=== PATIENT | male | born 1945 | race Caucasian/White ===

== ENCOUNTER 2018-01-27 05:51 | Day surgery (SDC) | payer MEDICARE ==
--- NOTE | 2018-01-25 21:28 | HP ---
CC: Dr. Geovani Cisneros; Dr. Mirtha Carvalho * ADMITTING HISTORY AND PHYSICAL: DATE OF ADMISSION: 01/27/18 ADMITTING DIAGNOSES: 1. Gross hematuria. 2. Bladder tumors. SURGICAL PROCEDURE: Transurethral resection of multiple bladder tumors, possible right stent insertion. SURGEON: Dr. Davis. HISTORY OF PRESENT ILLNESS: Red Rodriguez is a 72-year-old former smoker, who was evaluated for gross hematuria. Cystoscopy done in my office revealed a markedly large prostate, there are multiple bladder tumors noted in the mid trigone and in the floor of the bladder, some of which appear high-grade and possibly invasive. A CT urogram was obtained, which did not reveal any evidence of hydronephrosis or any adenopathy and he is now being brought in for transurethral resection of the bladder tumors and possible right stent insertion. PAST MEDICAL HISTORY: Significant for: 1. Hypertension. 2. Gastric reflux. 3. History of coronary artery disease. PAST SURGICAL HISTORY: Unremarkable. MEDICATIONS ON ADMISSION: 1. Doxazosin 8 mg a day. 2. Metoprolol 50 mg b.i.d. 3. Proscar 5 mg a day. 4. Omeprazole 20 mg a day. 5. Aspirin 81 mg a day. ALLERGIES: No known drug allergies. SMOKING HISTORY: He is a former smoker, who quit 4 years ago and has a 30-pack- year smoking history prior to that. REVIEW OF SYSTEMS: He denies any chest pain or shortness of breath. There is no history of diabetes mellitus or any other major systemic illness. PHYSICAL EXAMINATION GENERAL: Reveals a pleasant elderly gentleman. VITAL SIGNS: Blood pressure is 130/84; pulse 71 per minute, regular; oxygen saturation 98% on room air. LUNGS: Clear bilaterally. CARDIOVASCULAR: Regular rate and rhythm. S1, S2. ABDOMEN: Soft without masses. IMPRESSION: A 72-year-old former smoker with gross hematuria and multiple bladder tumors. PLAN: Planned procedure is transurethral resection of bladder tumors, possible right stent insertion. [id number]/[facility] #: [id number] [facility]
[~2018-01-27 05:51] MED LIST: Buffered Lidocaine 0.9% SYRIN* 5 ML/SYR SYRINGE INTRADERM ONE
[2018-01-27] MEDS ORDERED: Famotidine IV* 10 MG/ML 2 ML (20 mg) IV ONE (06:00)
[2018-01-27] MEDS ORDERED: Dexamethasone IV* 4 MG/ML 1 ML (4 MG) IV SLOW PU ONE (06:00)
[2018-01-27] MEDS ORDERED: cefTRIAXone(*) 2 GM ADDV.VIAL IVPB ONE (06:22)
[2018-01-27] MEDS ORDERED: Dexamethasone IV* 4 MG/ML 1 ML (4 MG) ONE (06:22)
[2018-01-27] MEDS ORDERED: Buffered Lidocaine 0.9% SYRIN* 5 ML/SYR SYRINGE ONE (06:22)
[2018-01-27] MEDS ORDERED: oxyCODONE/Acetamin 5/325 MG* TAB PO PRN (07:25)
[2018-01-27] MEDS ORDERED: Ondansetron INJ* 2 MG/ML VIAL IV PRN (07:25)
[2018-01-27] MEDS ORDERED: PROCHLORPERAZINE INJ 5 MG/ML 2 ML VIAL IV PRN (07:25)
[2018-01-27] MEDS ORDERED: HYDROcodone/ACETAMIN 5-325 MG* 1 TAB PO PRN (07:25)
[2018-01-27] MEDS ORDERED: Naloxone* 0.4 MG/ML 1 ML VIAL IV PRN (07:25)
[2018-01-27] MEDS ORDERED: fentaNYL* 50 MCG/ML 2 ML VIAL (100 MCG VIAL) ONE ×3 (07:30→09:23)
[2018-01-27] MEDS ORDERED: Lidocaine 2% PF * 5 ML VIAL ONE (07:31)
[2018-01-27] MEDS ORDERED: Propofol* 10 MG/ML 20 ML BTL IV PUSH ONE (07:31)
[2018-01-27] MEDS ORDERED: DiMENhydriNATE IV* 50 MG/ML VIAL ONE (07:57)
[2018-01-27] MEDS ORDERED: Iohexol 180 (CONTRAST) 10 ML SDV IV ONE (08:19)
[2018-01-27] MEDS ORDERED: Furosemide IV* 10 MG/ML 2 ML VIAL (20 MG) ONE (08:25)
[2018-01-27] MEDS: fentaNYL* 50 MCG/ML 2 ML VIAL (100 MCG VIAL) IV PRN ×2 (09:23→09:34)
[2018-01-27] MEDS ORDERED: Lidocaine 2% JELLY* 6 ML JELLY TOPICAL ONE (09:46)
[2018-01-27] MEDS ORDERED: mitoMYcin PWD* 40 MG in Sterile Water for Inj* 40 ML IRRIGATION ONE (10:00)
[2018-01-27] MEDS ORDERED: HYDROcodone/ACETAMIN 5-325 MG* 1 TAB ONE (10:03)
[2018-01-27 12:45] VITALS: BP 131/82
--- NOTE | 2018-01-27 13:00 | RAD ---
INDICATION: Transurethral resection of bladder tumor, pyelogram COMPARISONS: CT dated January 16, 2018 TECHNIQUE: Fluoroscopy was provided for a retrograde pyelogram and stent placement. Total fluoroscopy time is: 10.8 seconds FINDINGS: Spot images demonstrate contrast within the renal collecting system. A ureteral stent is noted. IMPRESSION: FLUOROSCOPY WAS PROVIDED FOR A RETROGRADE PYELOGRAM AND STENT PLACEMENT CPT II Codes: G9500
--- NOTE | 2018-01-28 01:26 | OP ---
CC: Geovani Csineros MD * DATE OF OPERATION: 01/27/18 - [facility] DATE OF : 47 SURGEON: Rio Davis MD ANESTHESIOLOGIST: Dr. Ott. ANESTHESIA: General. PRE-OP DIAGNOSIS: 1. Gross hematuria. 2. Multiple bladder tumors. 3. Prostate enlargement. POST-OP DIAGNOSIS: 1. Gross hematuria. 2. Multiple bladder tumors. 3. Prostate enlargement. OPERATIVE PROCEDURE: 1. Cystoscopy. 2. Transurethral resection and fulguration of multiple bladder tumors (5 to 6 cm). 3. Right retrograde pyelogram and right stent insertion. COMPLICATIONS: None. BLOOD LOSS: Less than 25 cc. INDICATIONS: Red Rodriguez is a 72-year-old gentleman who has had intermittent gross hematuria secondary to bladder tumors. Some of these tumors are close to the right side of the trigone. OPERATIVE FINDINGS: 1. Markedly enlarged vascular prostate. 2. Multiple superficial papillary bladder tumors, mid trigone closer to right side. No evidence of any muscle invasive appearing tumor. POSTOPERATIVE CONDITION: Stable. STENT USED: 6-Nepalese stent, right ureter. DESCRIPTION OF PROCEDURE: After induction of general anesthesia, the patient was placed in dorsal lithotomy position. Sequential compression devices were in place and functioning. Initial cystoscopy revealed a normal appearing urethra, markedly enlarged vascular prostate especially the median lobe component. The bladder was examined. The right and left ureteral orifices were normal in position and configuration. There were multiple papillary tumors in the mid trigone closer to the right side. All of these had an appearance consistent with superficial transitional cell carcinoma. Using the biopsy forceps, indirect sales representative biopsies were obtained and sent for histopathology. The resectoscope was introduced and all of the visible tumors were resected and/ or fulgurated. Some of the tumors were close to the opening of the right ureter and a right retrograde pyelogram was performed, which was normal. A 6- Nepalese stent was introduced and positioned under fluoroscopy in order to protect the right ureter and especially the intramural portion of the ureter. At the end of the procedure, there was no remaining visible tumor and hemostasis appeared satisfactory. A 22-Nepalese Wilson catheter was introduced without difficulty and connected to a drainage bag. The patient tolerated the procedure satisfactorily and was transferred back to recovery area in stable condition. [id number]/[facility] #: [id number] [facility]
--- NOTE | 2018-01-28 14:58 | OP ---
DICTATION CANCELLED OPERATIVE REPORT: DATE OF OPERATION: 01/27/18. DATE OF : 47. SURGEON: Rio Davis MD. PRE-OP DIAGNOSES: 1. Gross hematuria. 2. Bladder tumor. POST-OP DIAGNOSES: 1. Gross hematuria. 2. Bladder tumor. OPERATIVE PROCEDURE: Transurethral resection and fulguration of multiple bladder tumors, right retrograde pyelogram, and right stent insertion. DICTATION CANCELLED [id number]/[facility] #: [id number] [facility]
== END 2018-01-27 12:45 | disposition home or self-care (01) ==
LOC: OR 05:51
PROVIDERS: ATTEND Urology
DX: C67.8 Malignant neoplasm of overlapping sites of bladder (principal); R31.0 Gross hematuria; Z87.891 Personal history of nicotine dependence; I10 Essential (primary) hypertension; K21.9 Gastro-esophageal reflux disease without esophagitis; I25.10 Atherosclerotic heart disease of native coronary artery without angina pectoris; N40.0 Benign prostatic hyperplasia without lower urinary tract symptoms; F41.9 Anxiety disorder, unspecified
CPT/HCPCS: 74420; 88305; C1876; J0696; J1100; J1240; J1940; J2704; J3010; J9280

== ENCOUNTER 2018-11-29 05:41 | Day surgery (SDC) | payer MEDICARE ==
--- NOTE | 2018-11-21 18:28 | HP ---
CC: Dr. Geovani Cisneros; Dr. Mirtha Carvalho * ADMITTING HISTORY AND PHYSICAL: DATE OF ADMISSION: 11/29/18 ADMITTING DIAGNOSIS: Bladder cancer. PLANNED PROCEDURE: Cystoscopy and excision biopsy of multiple bladder tumors. SURGEON: Dr. Davis. HISTORY OF PRESENT ILLNESS: Red Rodriguez is a 73-year-old former smoker with a history of high-grade superficial bladder cancer. He had undergone transurethral resection of bladder lesions in January 2018 and subsequently he had received intravesical BCG treatments. 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 PAST MEDICAL HISTORY: Significant for: 1. History of coronary artery disease. 2. Hypertension. 3. Gastric reflux. 4. High cholesterol. MEDICATIONS ON ADMISSION: 1. Metoprolol 50 mg twice a day. 2. Proscar 5 mg a day. 3. Doxazosin 8 mg daily. 4. Aspirin 81 mg daily. 5. Omeprazole 20 mg daily. 6. Simvastatin just recently started last week. ALLERGIES: No known drug allergies. SOCIAL HISTORY: Smoking history: He has about a 30-pack year smoking history, who quit about 4 to 5 years ago. REVIEW OF SYSTEMS: He denies any chest pain or shortness of breath. There is no history of diabetes mellitus or any other major systemic illness. PHYSICAL EXAMINATION GENERAL: Reveals a pleasant, healthy-appearing elderly gentleman. VITAL SIGNS: Blood pressure is 152/90, pulse 62 per minute and regular, oxygen saturation 96% on room air, respirations 18 per minute. LUNGS: Clear bilaterally. CARDIOVASCULAR: Regular rate and rhythm. S1, S2. ABDOMEN: Soft without masses. IMPRESSION: A 73-year-old former smoker with recurrent bladder tumors. PLAN/RECOMMENDATIONS: Planned procedure is cystoscopy, excision biopsy of bladder tumors. [id number]/[facility] #: [id number] [facility]
[~2018-11-29 05:41] MED LIST changes: -Buffered Lidocaine 0.9% SYRIN* 5 ML/SYR SYRINGE INTRADERM ONE; +Buffered Lidocaine 1% SYRIN* 1 ML/SYRINGE INTRADERM ONE; +Ondansetron TAB* 4 MG PO ONE
[2018-11-29] MEDS ORDERED: DiMENhydriNATE IV* 50 MG/ML VIAL IV PUSH PRN (05:52)
[2018-11-29] MEDS ORDERED: PROCHLORPERAZINE INJ 5 MG/ML 2 ML VIAL IV PRN (05:52)
[2018-11-29] MEDS ORDERED: Morphine 4 MG/ML VIAL (1 ml) 4 MG/ML VIAL IV PRN (05:52)
[2018-11-29] MEDS ORDERED: fentaNYL* 50 MCG/ML 2 ML VIAL (100 MCG VIAL) IV PRN (05:52)
[2018-11-29] MEDS ORDERED: oxyCODONE/Acetamin 5/325 MG* TAB PO PRN (05:52)
[2018-11-29] MEDS ORDERED: Naloxone* 0.4 MG/ML 1 ML VIAL IV PRN (05:52)
[2018-11-29] MEDS ORDERED: Dexamethasone TAB* 4 MG PO ONE (06:00)
[2018-11-29] MEDS ORDERED: Famotidine IV* 10 MG/ML 2 ML (20 mg) IV ONE (06:00)
[2018-11-29] MEDS ORDERED: Lactated Ringers 1000 ML Bag* 1,000 ML IV SCH (06:00)
[2018-11-29] MEDS ORDERED: Famotidine IV* 10 MG/ML 2 ML (20 mg) ONE (06:03)
[2018-11-29] MEDS ORDERED: Ondansetron ODT TAB* 4 MG ONE (06:03)
[2018-11-29] MEDS ORDERED: Dexamethasone TAB* 4 MG ONE (06:03)
[2018-11-29] MEDS ORDERED: cefTRIAXone(*) 2 GM ADDV.VIAL IVPB ONE (06:03)
[2018-11-29] MEDS ORDERED: Iohexol 180 (CONTRAST) 10 ML SDV IV ONE (07:07)
[2018-11-29] MEDS ORDERED: fentaNYL* 50 MCG/ML 2 ML VIAL (100 MCG VIAL) ONE (07:21)
[2018-11-29] MEDS ORDERED: Midazolam* 1 MG/ML 2 ML VIAL (2 MG) ONE (07:21)
[2018-11-29] MEDS ORDERED: KETAMINE HCL* 50 MG/ML 10 ML VIAL ONE (07:21)
[2018-11-29] MEDS ORDERED: Furosemide IV* 10 MG/ML 2 ML VIAL (20 MG) ONE (07:50)
[2018-11-29] MEDS ORDERED: Propofol* 10 MG/ML 20 ML BTL ONE (07:51)
[2018-11-29] MEDS ORDERED: Lidocaine 2% PF * 5 ML VIAL ONE (07:51)
[2018-11-29] MEDS ORDERED: Phenylephrine 10 MG/ML VIAL* 1 ML VIAL ONE (07:51)
[2018-11-29] MEDS ORDERED: oxyCODONE/Acetamin 5/325 MG* TAB ONE (09:07)
[2018-11-29 09:52] VITALS: BP 152/73
--- NOTE | 2018-11-29 11:28 | OP ---
CC: Dr. Humberto Cisneros; Dr. Mirtha Carvalho; Dr. Rio Davis* OPERATIVE REPORT: DATE OF OPERATION: 11/29/18 - [facility] DATE OF : 47 SURGEON: Dr. Davis. ANESTHESIOLOGIST: Dr. Steward. ANESTHESIA: General. PRE-OP DIAGNOSES: Probable recurrent bladder tumor and carcinoma in situ of urinary bladder. POST-OP DIAGNOSES: Probable recurrent bladder tumor and carcinoma in situ of urinary bladder. OPERATIVE PROCEDURE: 1. Cystoscopy. 2. Multiple excision biopsies. 3. Fulguration of bladder lesion (aggregate 4 to 5 cm). COMPLICATIONS: None. OPERATIVE FINDINGS: 1. Markedly enlarged prostate, especially median lobe. 2. Multiple areas of posterior bladder wall probably representing recurrent transitional cell carcinoma and carcinoma in situ. POSTOPERATIVE CONDITION: Stable. INDICATIONS: Red Rodriguez is a 73-year-old gentleman who was recently seen in followup and noted to have the above-mentioned findings suspicious for recurrent transitional cell carcinoma. DESCRIPTION OF PROCEDURE: After induction of general anesthesia, the patient was placed in the dorsal lithotomy position. Sequential compression devices were in place and functioning. Initial evaluation revealed mild nonobstructing strictures in the bulbar urethra and a significantly enlarged prostate. The bladder was examined. The right and left ureteral orifices were normal in position and configuration. There were multiple areas in the posterior bladder wall as described above. Using the biopsy forceps, excision biopsies were obtained and sent for histopathology. Next, using the Bugbee electrocautery, the base and edges were carefully fulgurated. At the end of the procedure, hemostasis appeared satisfactory and there was no evidence of bladder perforation. Initially, I placed a 20-Cymraes Wilson catheter, but it did not seem to be draining well, so a cystoscopy was performed. I think the initial catheter balloon was getting hung up in the area of the median lobe and using a cystoscope, the guidewire was introduced into the bladder and a 22-Cymraes Councill tip catheter was easily advanced over it. The patient tolerated the procedure satisfactorily and was transferred back to the recovery area in stable condition. [id number]/[facility] #: [id number] [facility]
== END 2018-11-29 09:53 | disposition home or self-care (01) ==
LOC: OR 05:41
PROVIDERS: ATTEND Urology
DX: D09.0 Carcinoma in situ of bladder (principal); Z85.51 Personal history of malignant neoplasm of bladder; Z87.891 Personal history of nicotine dependence; I25.10 Atherosclerotic heart disease of native coronary artery without angina pectoris; I25.2 Old myocardial infarction; I10 Essential (primary) hypertension; K21.9 Gastro-esophageal reflux disease without esophagitis; E78.00 Pure hypercholesterolemia, unspecified
CPT/HCPCS: 88305; A9270-GY; J0696; J1940; J2250; J2704; J3010; J8540

== ENCOUNTER → 2019-07-23 07:14 | Day surgery (SDC) | payer MEDICARE ==
--- NOTE | 2019-07-19 18:25 | HP ---
CC: Dr. Cisneros; Dr. Carvalho * ADMITTING HISTORY AND PHYSICAL: DATE OF ADMISSION: 07/23/19 ADMITTING DIAGNOSIS: Recurrent bladder cancer. PLANNED PROCEDURE: Cystoscopy, transurethral resection of bladder tumor. SURGEON: Dr. Davis. HISTORY OF PRESENT ILLNESS: Red Rodriguez is a 73-year-old former smoker with a history of superficial high-grade bladder cancer. He was recently evaluated and noted to have a recurrent bladder tumor in the anterior bladder wall on the right side, and is now being brought in for transurethral resection of the same. PAST MEDICAL HISTORY: Significant for: 1. High cholesterol. 2. Superficial bladder cancer. 3. Hypertension. 4. History of coronary artery disease. PAST SURGICAL HISTORY: Significant for transurethral resection of bladder tumor in 2017 and November of 2018. MEDICATIONS ON ADMISSION: 1. Cardura 8 mg daily. 2. Proscar 5 mg daily. 3. Rosuvastatin 10 mg daily. 4. Omeprazole 20 mg daily. 5. Metoprolol 50 mg daily. ALLERGIES: No known drug allergies. FAMILY HISTORY: Negative for bladder cancer. SOCIAL HISTORY: Smoking history: He is a former smoker, who quit 5 years ago and has a 30-pack year smoking history. MENTAL HISTORY: He is alert and oriented x3. PHYSICAL EXAMINATION GENERAL: Reveals a pleasant, healthy-appearing elderly gentleman. VITAL SIGNS: Blood pressure is 142/84, pulse 60 per minute and regular, oxygen saturation 94% on room air, temperature 96.2. LUNGS: Clear bilaterally. CARDIOVASCULAR: Regular rate and rhythm. S1, S2. ABDOMEN: Soft without masses. IMPRESSION: A 73-year-old former smoker with what appears to be recurrent bladder tumor in the anterior bladder wall on the right side. PLAN/RECOMMENDATIONS: Planned procedure is transurethral resection of bladder tumor. [id number]/[facility] #: [id number] [facility]
[~2019-07-23 07:14] MED LIST changes: +Acetaminophen TAB* 325 MG ONE; +Acetaminophen TAB* 325 MG PO ONE; +Dexamethasone IV* 4 MG/ML 1 ML (4 MG) ONE; +DiMENhydriNATE IV* 50 MG/ML VIAL IV PUSH PRN; +Famotidine IV* 10 MG/ML 2 ML (20 mg) IV ONE; +Famotidine IV* 10 MG/ML 2 ML (20 mg) ONE; +Furosemide IV* 10 MG/ML 2 ML VIAL (20 MG) ONE; +HYDROcodone/ACETAMIN 5-325 MG* 1 TAB ONE; +HYDROcodone/ACETAMIN 5-325 MG* 1 TAB PO PRN; +Lactated Ringers 1000 ML Bag* 1,000 ML IV SCH; +Lidocaine 2% PF * 5 ML VIAL ONE; +Midazolam* 1 MG/ML 2 ML VIAL (2 MG) ONE; +Naloxone* 0.4 MG/ML 1 ML VIAL IV PRN; +Ondansetron INJ* 2 MG/ML VIAL IV PRN; +Ondansetron INJ* 2 MG/ML VIAL ONE; -Ondansetron TAB* 4 MG PO ONE; +Propofol* 10 MG/ML 20 ML BTL ONE; +cefTRIAXone(*) 2 GM ADDV.VIAL IVPB ONE; +diPHENhydraMINE IV* 50 MG/ML 1 ml VIAL (BENADRYL) IV PRN; +fentaNYL* 50 MCG/ML 2 ML VIAL (100 MCG VIAL) ONE; +mitoMYcin PREMIX* 40 MG KIT* 40 MG/40 ML SYRINGE IRRIGATION ONE; +oxyCODONE/Acetamin 5/325 MG* TAB ONE
--- NOTE | 2019-07-23 11:47 | OP ---
CC: Dr. Humberto Cisneros * DATE OF OPERATION: 07/23/19 - [facility] DATE OF : 47 SURGEON: Rio Davis MD ANESTHESIOLOGIST: Dr. Olivarez. ANESTHESIA: General. PRE-OP DIAGNOSIS: Recurrent bladder cancer. POST-OP DIAGNOSIS: Recurrent bladder cancer. OPERATIVE PROCEDURE: Cystoscopy, transurethral resection and fulguration of bladder tumor (3 to 4 cm). COMPLICATIONS: None. BLOOD LOSS: Less than 25 cc. INDICATIONS: Red Rodriguez is a 73-year-old gentleman with a history of recurrent superficial bladder cancer. He is a former smoker. He is now being brought in for transurethral resection of a recurrent bladder tumor. OPERATIVE FINDINGS: Superficial-appearing bladder tumor anterior bladder wall right side. 1. Moderately enlarged prostate. 2. Recurrent bladder tumor anterior wall right side. POSTOPERATIVE CONDITION: Stable. CATHETER: 22-Cuban Wilson. DESCRIPTION OF PROCEDURE: After induction of general anesthesia, the patient was placed in dorsal lithotomy position, sequential compression devices were in place and functioning. Initial cystoscopy revealed a normal-appearing urethra, moderately enlarged prostate. The bladder was examined. The right and left ureteral orifices appeared normal. There was scarring noted at the site of previous tumor resection. In the anterior bladder wall on the right side, there was a 3 to 4 cm area of what appears to be a superficial, possibly high- grade tumor. Using a biopsy forceps, branch service representative biopsies were obtained and sent for histopathology. Next, using the resectoscope, all of the visible tumor was carefully resected and hemostasis was secured using the coagulating current. At the end of the procedure, there was no remaining visible tumor and there was no evidence of bladder perforation. A 22-Cuban Wilson was introduced and connected to a drainage bag. The patient tolerated the procedure satisfactorily and was transferred back to the recovery area in stable condition. [id number]/[facility] #: [id number] [facility]
[2019-07-23] MEDS: fentaNYL* 50 MCG/ML 2 ML VIAL (100 MCG VIAL) IV PRN ×3 (12:19→12:32)
[2019-07-23 14:20] VITALS: BP 158/85
== END | disposition home or self-care (01) ==
LOC: OR 07:14
PROVIDERS: ATTEND Urology
DX: C67.3 Malignant neoplasm of anterior wall of bladder (principal); E78.00 Pure hypercholesterolemia, unspecified; I10 Essential (primary) hypertension; Z87.891 Personal history of nicotine dependence; N40.0 Benign prostatic hyperplasia without lower urinary tract symptoms
CPT/HCPCS: 88305; A9270-GY; J0696; J1100; J1940; J2250; J2405; J2704; J3010